=== PATIENT | male | born 1975 | race Caucasian/White ===

== ENCOUNTER 2017-09-09 06:21 | Day surgery (SDC) | payer OTHER ==
[2017-09-09] MEDS: LR 1,000 ML IV (07:15)
[2017-09-09] MEDS ORDERED: MIDAZOLAM INJ 2 MG/2 ML VIAL (J2250) As Ordered (07:54)
[2017-09-09] MEDS ORDERED: METOCLOPRAMIDE INJ 10MG/2ML VIAL (J2765) As Ordered (07:54)
[2017-09-09] MEDS ORDERED: ROCURONIUM BROMIDE 50 MG/5 ML VIAL As Ordered ×3 (07:54→08:31)
[2017-09-09] MEDS ORDERED: fentaNYL 250 MCG/5 ML INJECTION (J3010) As Ordered (07:54)
[2017-09-09] MEDS ORDERED: PROPOFOL 200 MG/20 ML VIAL As Ordered (07:54)
[2017-09-09] MEDS ORDERED: LIDOCAINE 2% INJ 100 MG/5 ML SDV (FOR ANES.) As Ordered (07:54)
[2017-09-09] MEDS ORDERED: GLYCOPYRROLATE INJ 0.2 MG/ML 2 ML VIAL As Ordered ×2 (07:54)
[2017-09-09] MEDS ORDERED: NEOSTIGMINE 10 MG/10 ML VIAL (J2710) As Ordered (07:54)
[2017-09-09] MEDS ORDERED: ONDANSETRON 4MG/2ML VIAL (J2405) As Ordered (07:55)
[2017-09-09] MEDS ORDERED: KETOROLAC 60 MG/2 ML VIAL (J1885) As Ordered (07:55)
[2017-09-09] MEDS: BUPIVACAINE HCL 0.25% 30 ML VIAL As Ordered (08:12)
[2017-09-09] MEDS ORDERED: SEVOFLURANE INHAL SOLN 250 ML BTL As Ordered (08:17)
[2017-09-09] MEDS ORDERED: PERCOCET 5MG/325MG TAB As Ordered (10:03)
[2017-09-09] MEDS: PERCOCET 5MG/325MG TAB PO ×2 (10:05→10:38)
[2017-09-09] MEDS ORDERED: ONDANSETRON 4MG/2ML VIAL (J2405) IV (10:30)
[2017-09-09] MEDS ORDERED: METOCLOPRAMIDE INJ 10MG/2ML VIAL (J2765) IV (10:30)
[2017-09-09] MEDS ORDERED: ACETAMINOPHEN TAB 650MG DOSE (2X325MG) PO (10:30)
[2017-09-09] MEDS ORDERED: LR 1,000 ML IV (10:30)
[2017-09-09] MEDS ORDERED: fentaNYL 100 MCG/2 ML INJECTION (J3010) IV (10:30)
[2017-09-09] MEDS ORDERED: IBUPROFEN 600 MG TAB PO (10:30)
[2017-09-09] MEDS ORDERED: NORCO, ANEXSIA 5/325MG TABLET (HYDROcodone/ACETAMINOPHEN) PO (10:30)
== END 2017-09-09 12:15 | disposition home or self-care (01) ==
LOC: M SDC 06:21
DX: K40.90 Unilateral inguinal hernia, without obstruction or gangrene, not specified as recurrent (principal); Z79.899 Other long term (current) drug therapy
CPT/HCPCS: 49505